=== PATIENT | male | born 1975 | race Caucasian/White ===

== ENCOUNTER 2018-08-08 20:50 | Emergency (ER) | payer SELFPAY ==
[2018-08-08] MEDS ORDERED: Ketorolac Tromethamine 30 MG/ML VIAL ONE (21:05)
[2018-08-08] MEDS ORDERED: Sodium Chloride 0.9% 1,000 ML ONE (21:05)
[2018-08-08 21:35] LABS: Band 3 % (5-11); Hemoglobin 17.3 g/dL (14.0-18.0); Lymphocytes 25 % (21-51); MDiff Complete? YES; Mean Corpuscular HGB CONC 34.2 g/dL (32.0-36.0); Mean Corpuscular Hemoglobin 31.6 pg (27.0-31.0); Mean Corpuscular Volume 92.3 fL (78.0-98.0); Mean Platelet Volume 7.8 fL (7.4-10.4); Monocytes 4 % (0-10); Neutrophil 68 % (42-75); Platelet Count 239 thou/uL (130-400); Platelet Morphology Comment Appears Adequate; RBC Morphology Normal; Red Blood Cell (RBC) Count 5.48 mill/uL (4.70-6.10); White Blood Cell (WBC) Count 9.1 thou/uL (4.8-10.8)
--- NOTE | 2018-08-08 21:37 | RAD ---
CHEST TWO VIEWS: History: Chest pain. Comparison: 2014 FINDINGS: Lungs are clear. No pneumothorax or effusion. Heart size is mildly enlarged. No acute osseous abnorma lity. IMPRESSION: Mild cardiomegaly. POS: [facility]
[2018-08-08 21:47] LABS: Chloride 105 mmol/L (98-107); Sodium 140 mmol/L (136-145)
[2018-08-08 21:48] LABS: Albumin 4.8 g/dL (3.5-5.0); Anion Gap 22 mmol/L (10-20); BUN (Urea Nitrogen) 19 mg/dL (8.9-20.6); Bilirubin, Total 0.4 mg/dL (0.2-1.2); Calc. Creatinine Clearance 0 mL/min (70-130); Carbon Dioxide 17 mmol/L (22-29); Estimated GFR-MDRD Greater than 90; Globulin 2.4 g/dL (2.4-3.5); Glucose 85 mg/dL (70-105); Protein, Total 7.2 g/dL (6.0-8.3)
[2018-08-08 21:49] LABS: ALT (SGPT) 30 U/L (8-55); AST (SGOT) 26 U/L (5-34); Alkaline Phosphatase 89 U/L (40-150)
== END 2018-08-08 22:11 | disposition home or self-care (01) ==
LOC: NAV ERS 20:50
DX: R07.89 Other chest pain (principal); E78.5 Hyperlipidemia, unspecified; I10 Essential (primary) hypertension; F17.220 Nicotine dependence, chewing tobacco, uncomplicated; Z79.899 Other long term (current) drug therapy
CPT/HCPCS: 71046; 80053; 83880; 84484; 85025; 93005; 96361; 96374; J1885; J7050